=== PATIENT | male | born 1980 | race Hispanic/Latino ===

== ENCOUNTER 2018-07-05 05:42 | Emergency (ER) | payer OTHER ==
[2018-07-05] MEDS ORDERED: CYCLOBENZAPRINE HCL 10 MG TABLET ONE (07:01)
[2018-07-05] MEDS ORDERED: KETOROLAC TROMETHAMINE 60 MG/2 ML VIAL ONE (07:01)
== END 2018-07-05 07:24 | disposition home or self-care (01) ==
LOC: EDH 05:42
DX: M62.830 Muscle spasm of back (principal); R51 Headache; Z87.891 Personal history of nicotine dependence
CPT/HCPCS: 96372; 99283; J1885